=== PATIENT | male | born 1985 | race Caucasian/White ===

== ENCOUNTER 2018-07-19 11:29 | Emergency (ER) | payer SELFPAY ==
[~2018-07-19] VITALS: Ht 162.6 cm; Wt 56.0 kg
[2018-07-19] MEDS ORDERED: SODIUM CHLORIDE 0.9% 1,000 ML IV ONE (11:49)
[2018-07-19 13:11] LABS: CHLORIDE 99 mEq/L (98-107)
[2018-07-19 13:16] LABS: ETHANOL BLOOD < 10 mg/dL
[2018-07-19 13:24] LABS: HEMATOCRIT. 38.8 % (42.0-52.0); HEMOGLOBIN. 13.3 g/dL (14.0-18.0); MEAN CORPUSCULAR HEMOGLOBIN 32.5 pg (28.0-32.0); MEAN PLATELET VOLUME 8.1 fl (7.4-10.4); PLATELET 214 x1000/uL (130-400); RED BLOOD CELL COUNT 4.09 mill/uL (4.7-6.1); RED CELL DISTRIBUTION WIDTH 15.6 % (11.6-14.6)
[2018-07-19 14:51] LABS: CLARITY URINE CLEAR (CLEAR); COLOR URINE YELLOW (YELLOW); KETONES URINE 2+ (NEGATIVE); LEUKOCYTE ESTERASE URINE 1+ (NEGATIVE); NITRITE URINE NEGATIVE (NEGATIVE); OCCULT BLOOD URINE TRACE (NEGATIVE); PH URINE >=9.0 (4.5-8.0); PROTEIN URINE 2+ (NEGATIVE); UROBILINOGEN URINE 0.2 E.U./dL (0.2-1.0)
[2018-07-19 15:17] LABS: *AMPHETAMINES SCREEN URINE NEGATIVE (NEGATIVE); *BARBITURATES SCREEN URINE NEGATIVE (NEGATIVE)
[2018-07-19 15:18] LABS: *BENZODIAZEPINES SCREEN URINE NEGATIVE (NEGATIVE); *COCAINE SCREEN URINE NEGATIVE (NEGATIVE); METHADONE URINE SCREEN NEGATIVE (NEGATIVE); OPIATES URINE SCREEN NEGATIVE (NEGATIVE); PHENCYCLIDINE URINE SCREEN NEGATIVE (NEGATIVE)
[2018-07-19 15:19] LABS: CANNABINOID URINE SCREEN NEGATIVE (NEGATIVE)
[2018-07-19 15:36] LABS: PLATELET ESTIMATE NORMAL
[2018-07-19] MEDS ORDERED: ONDANSETRON HCL 4MG/2ML INJ IV ONE (16:30)
[2018-07-19] MEDS ORDERED: CHLORDIAZEPOXIDE 25MG CAPSULE PO ONE ×2 (16:30→22:00)
[2018-07-19] MEDS ORDERED: LEVOFLOXACIN 250MG TABLET PO ONE ×2 (18:00→22:00)
[2018-07-20 11:02] VITALS: BP 116/76
== END 2018-07-20 11:11 | disposition home or self-care (01) ==
LOC: ER 11:43
DX: F15.188 Other stimulant abuse with other stimulant-induced disorder (principal); N39.0 Urinary tract infection, site not specified; F10.20 Alcohol dependence, uncomplicated; Y90.0 Blood alcohol level of less than 20 mg/100 ml; K70.9 Alcoholic liver disease, unspecified; Z59.0 Homelessness
CPT/HCPCS: 36415; 70450; 80053; 80305; 81003; 85025; 93005; 96360; 96361; 99285; G0482; J7030